=== PATIENT | female | born 1970 | race Caucasian/White ===

== ENCOUNTER 2016-03-14 07:33 | Emergency (ER) | payer MEDICARE, MEDICAID ==
[~2016-03-14] VITALS: Ht 162.6 cm; Wt 90.9 kg
[~2016-03-14 07:33] MED LIST: AMBIEN5 MG PO; AMOXICILLIN 8751 TAB PO; CELEXA; CELEXA40 MG PO; CYMBALTA; CYMBALTA 60MG60 MG PO; DICLEGIS PO; GENTAMICIN OPTHA3 GM OP; KLONOPIN 0.5MG0.5 MG PO; NEXIUM 40MG40 MG PO; NEXIUM24HROTC PO; NO HOME MEDICATIONS; NORCO 325 MG-51 TAB PO; PHENERGAN25 MG; PHENERGAN25 MG RC; PRILOTC PO; SAPHRIS10 MG SL; XANAX 0.5MG0.5 MG PO; XANAX0.25 MG PO; ZESTRIL 20MG TA20 MG PO; ZOCOR 20MG20 MG PO
[2016-03-14 07:35] VITALS: BP 116/95; TEMP 97.9
[2016-03-14 08:27] LABS: ARTERIAL BLD GAS O2 SATURATION 95.5 % (92-100); ARTERIAL BLD GAS TCO2 CT 23.7; ARTERIAL BLOOD GAS BASE EXCESS -1.3 (-2-2); ARTERIAL BLOOD GAS HCO3 22.6 meq/L (22-26); ARTERIAL BLOOD GAS PHT 7.42 C (7.35-7.45); ARTERIAL BLOOD GAS PO2 74.7 mmHg (80-100); ARTERIAL BLOOD GAS PO2T 74.7 (80-100); ARTERIAL BLOOD GAS pH 7.42 (7.35-7.45); OXYHEMOGLOBIN 92.1 %
[2016-03-14 08:28] LABS: ALLEN TEST YES; ALLENS TEST RESULT PASS; ATS? YES
[2016-03-14 08:28] LABS: HEMATOCRIT 42.6 % (37.0-47.0); HEMOGLOBIN 14.1 g/dl (12.5-16.0); MEAN CELL VOLUME 85 fl (80.0-100.0); MEAN CORPUSCULAR HEMOGLOBIN 28 pg (27.0-31.0); MEAN CORPUSCULAR HGB CONC 33 g/dl (33.0-37.0); MEAN PLATELET VOLUME 10.5 fl (7.4-10.4); PLATELET COUNT 410 K/mm3 (130-400); RED BLOOD COUNT 5.04 M/mm3 (4.10-5.30); REDCELL DISTRIBUTION WIDTH-CV 15.3 % (11.5-14.5); WHITE BLOOD COUNT 18.4 K/mm3 (4.8-10.8)
[2016-03-14 08:35] LABS: ADD PATHOLOGY DIFF REVIEW NO; ALBUMIN 4.2 gm/dL (3.5-5.0); BILIRUBIN,TOTAL 0.9 mg/dL (0.0-1.0); CALCIUM 9.2 mg/dL (8.4-10.2); CREATININE, serum 0.62 mg/dL (0.52-1.25); POTASSIUM 3.9 mmol/L (3.4-5.0); TOTAL PROTEIN 7.7 gm/dL (6.4-8.2)
[2016-03-14] MEDS ORDERED: ZOFRAN ODT4 MG PO (09:01)
[2016-03-14 09:55] VITALS: PULSE 95
[2016-03-14 10:04] LABS: PH 7 (5-8); URINE APPEARANCE Hazy; URINE BACTERIA Rare /hpf; URINE BILIRUBIN Negative (NEGATIVE); URINE BLOOD Negative (NEGATIVE); URINE COLOR Yellow; URINE GLUCOSE Negative (NEGATIVE); URINE KETONE Negative (NEGATIVE); URINE UROBILINOGEN Negative (NEGATIVE); URINE WBC 0-2 /hpf
[2016-03-14 10:13] LABS: BAND 8 % (0-10); NEUTROPHILS 87 % (42.0-75.2); PLATELET ESTIMATE NORMAL (NORMAL); TOTAL CELLS COUNTED 100
== END 2016-03-14 09:55 | disposition home or self-care (01) ==
LOC: COL.ER 07:33
PROVIDERS: Emergency Medicine
DX: K52.9 Noninfective gastroenteritis and colitis, unspecified (principal); T59.891A Toxic effect of other specified gases, fumes and vapors, accidental (unintentional), initial encounter; R51 Headache; Y92.009 Unspecified place in unspecified non-institutional (private) residence as the place of occurrence of the external cause
CPT/HCPCS: J1200; J1885; J2550; J7030

== ENCOUNTER 2016-03-18 18:24 | Emergency (ER) | payer MEDICARE, MEDICAID ==
[~2016-03-18] VITALS: Ht 162.6 cm; Wt 90.9 kg
[~2016-03-18 18:24] MED LIST changes: +ZOFRAN ODT4 MG PO
[2016-03-18] MEDS ORDERED: PHENERGAN25 MG RC (18:29)
[2016-03-18 19:18] LABS: BASO # 0.1 (0.0-0.2); BASO % 0.5 % (0.0-2.0); EOS # 0.3 (0.0-0.7); EOS % 1.9 % (0-4.0); GRAN # 8.1 (1.4-6.5); GRAN % 60.9 % (42.2-75.2); HEMOGLOBIN 13.2 g/dl (12.5-16.0); LYMPH # 3.8 (1.2-3.4); LYMPH % 28.3 % (20.0-51.0); MEAN CELL VOLUME 85 fl (80.0-100.0); MEAN CORPUSCULAR HEMOGLOBIN 28 pg (27.0-31.0); MEAN CORPUSCULAR HGB CONC 33 g/dl (33.0-37.0); MONO # 1.1 (0.1-0.6); MONO % 8.1 % (1.7-9.3); PLATELET COUNT 393 K/mm3 (130-400); RED BLOOD COUNT 4.71 M/mm3 (4.10-5.30); REDCELL DISTRIBUTION WIDTH-CV 14.9 % (11.5-14.5); WHITE BLOOD COUNT 13.3 K/mm3 (4.8-10.8)
[2016-03-18 19:25] LABS: PH 6 (5-8); PROTHROMBIN TIME 11.1 SECONDS (9.7-12.8); SQUAMOUS EPITHELIAL 0-2 /hpf; URINE APPEARANCE Clear; URINE BACTERIA Rare /hpf; URINE BILIRUBIN Negative (NEGATIVE); URINE BLOOD Negative (NEGATIVE); URINE COLOR Straw; URINE GLUCOSE Negative (NEGATIVE); URINE KETONE Negative (NEGATIVE); URINE RBC 0-2 /hpf; URINE UROBILINOGEN Negative (NEGATIVE); URINE WBC 0-2 /hpf
[2016-03-18 19:28] LABS: PARTIAL THROMBOPLASTIN TIME 30.7 SECONDS (26.0-37.0)
[2016-03-18 19:29] LABS: ADJUSTED CALCIUM 9.5 mg/dL (8.4-10.2); ALANINE AMINOTRANSFERASE 33 U/L (9-52); ALKALINE PHOSPHATASE 72 U/L (50-136); ANION GAP 12 mmol/L (7-16); BILIRUBIN,TOTAL 0.5 mg/dL (0.0-1.0); BLOOD UREA NITROGEN 11 mg/dL (7-17); CALCIUM 9.5 mg/dL (8.4-10.2); CARBON DIOXIDE 27 mmol/L (22-30); CHLORIDE 102 mmol/L (98-107); CREATININE, serum 0.71 mg/dL (0.52-1.25); GLUCOSE 89 mg/dL (74-106); POTASSIUM 3.4 mmol/L (3.4-5.0); SODIUM 141 mmol/L (137-145); TOTAL PROTEIN 7.3 gm/dL (6.4-8.2)
[2016-03-18 19:36] LABS: AMPHETAMINE URINE NEGATIVE; BARBITURATES URINE NEGATIVE; BENZODIAZEPINES URINE NEGATIVE; BUPRENORPHINE URINE NEGATIVE; METHADONE URINE NEGATIVE; OPIATES URINE NEGATIVE; OXYCODONE URINE NEGATIVE; PHENCYCLIDINE URINE NEGATIVE; PROPOXYPHENE URINE NEGATIVE; THC CANNABINOIDS URINE POSITIVE
[2016-03-18 20:35] VITALS: BP 117/70; PULSE 79; TEMP 98.3
== END 2016-03-18 20:35 | disposition home or self-care (01) ==
LOC: COL.ER 18:24
PROVIDERS: Physician Assistant
DX: G43.109 Migraine with aura, not intractable, without status migrainosus (principal); F17.210 Nicotine dependence, cigarettes, uncomplicated
CPT/HCPCS: J1170; J2405

== ENCOUNTER 2016-10-17 13:20 | Emergency (ER) | payer MEDICARE, MEDICAID ==
[~2016-10-17] VITALS: Ht 162.6 cm; Wt 86.4 kg
[2016-10-17 13:29] VITALS: TEMP 98.8
[2016-10-17 14:04] LABS: BASO # 0.1 (0.0-0.2); BASO % 0.6 % (0.0-2.0); EOS # 0.1 (0.0-0.7); EOS % 0.7 % (0-4.0); GRAN # 10.5 (1.4-6.5); GRAN % 75.1 % (42.2-75.2); HEMATOCRIT 40.8 % (37.0-47.0); HEMOGLOBIN 13.5 g/dl (12.5-16.0); LYMPH # 2.5 (1.2-3.4); LYMPH % 17.6 % (20.0-51.0); MEAN CELL VOLUME 84 fl (80.0-100.0); MEAN CORPUSCULAR HEMOGLOBIN 28 pg (27.0-31.0); MEAN CORPUSCULAR HGB CONC 33 g/dl (33.0-37.0); MONO # 0.8 (0.1-0.6); MONO % 5.6 % (1.7-9.3); PLATELET COUNT 482 K/mm3 (130-400); RED BLOOD COUNT 4.85 M/mm3 (4.10-5.30); REDCELL DISTRIBUTION WIDTH-CV 15.7 % (11.5-14.5); WHITE BLOOD COUNT 13.9 K/mm3 (4.8-10.8)
[2016-10-17] MEDS ORDERED: KLONOPIN 1MG1 MG PO (14:12)
[2016-10-17] MEDS ORDERED: REXULTI2 MG PO (14:13)
[2016-10-17 14:15] LABS: ADJUSTED CALCIUM 9.2 mg/dL (8.4-10.2); ALANINE AMINOTRANSFERASE 20 U/L (9-52); ALBUMIN 4.3 gm/dL (3.5-5.0); ALKALINE PHOSPHATASE 77 U/L (50-136); ANION GAP 11 mmol/L (7-16); BILIRUBIN,TOTAL 0.4 mg/dL (0.0-1.0); BLOOD UREA NITROGEN 11 mg/dL (7-17); CALCIUM 9.4 mg/dL (8.4-10.2); CARBON DIOXIDE 23 mmol/L (22-30); CHLORIDE 103 mmol/L (98-107); CREATININE, serum 0.61 mg/dL (0.52-1.25); GLUCOSE 96 mg/dL (74-106); POTASSIUM 3.9 mmol/L (3.4-5.0); SODIUM 138 mmol/L (137-145); TOTAL PROTEIN 7.6 gm/dL (6.4-8.2)
[2016-10-17 14:27] LABS: TROPONIN-I < 0.012 ng/mL (0.000-0.034)
[2016-10-17 15:45] VITALS: BP 112/71; PULSE 100
== END 2016-10-17 15:45 | disposition home or self-care (01) ==
LOC: COL.ER 13:20
PROVIDERS: Family Medicine
DX: F41.0 Panic disorder [episodic paroxysmal anxiety] (principal); F17.210 Nicotine dependence, cigarettes, uncomplicated
CPT/HCPCS: J1200; J1885; J2060; J7030

== ENCOUNTER 2017-01-30 07:15 | Emergency (ER) | payer MEDICARE, MEDICAID ==
[~2017-01-30] VITALS: Ht 162.6 cm; Wt 90.9 kg
[~2017-01-30 07:15] MED LIST changes: +KLONOPIN 1MG1 MG PO; +REXULTI2 MG PO
[2017-01-30 07:17] VITALS: BP 155/68; TEMP 98.4
[2017-01-30 08:04] LABS: BASO # 0.1 (0.0-0.2); BASO % 0.5 % (0.0-2.0); EOS # 0.1 (0.0-0.7); EOS % 0.7 % (0-4.0); GRAN # 13.7 (1.4-6.5); GRAN % 76.8 % (42.2-75.2); HEMATOCRIT 42.3 % (37.0-47.0); HEMOGLOBIN 13.8 g/dl (12.5-16.0); LYMPH # 2.7 (1.2-3.4); MEAN CELL VOLUME 84 fl (80.0-100.0); MEAN CORPUSCULAR HEMOGLOBIN 28 pg (27.0-31.0); MEAN CORPUSCULAR HGB CONC 33 g/dl (33.0-37.0); MEAN PLATELET VOLUME 9.8 fl (7.4-10.4); MONO # 1.2 (0.1-0.6); MONO % 6.6 % (1.7-9.3); PLATELET COUNT 491 K/mm3 (130-400); RED BLOOD COUNT 5.02 M/mm3 (4.10-5.30); WHITE BLOOD COUNT 17.9 K/mm3 (4.8-10.8)
[2017-01-30 08:14] LABS: BLOOD UREA NITROGEN 18 mg/dL (7-17); CREATININE, serum 0.63 mg/dL (0.52-1.25); GLUCOSE 107 mg/dL (74-106)
[2017-01-30 08:15] LABS: ADJUSTED CALCIUM 9.4 mg/dL (8.4-10.2); ALANINE AMINOTRANSFERASE 23 U/L (9-52); ALBUMIN 4.3 gm/dL (3.5-5.0); ALKALINE PHOSPHATASE 102 U/L (50-136); ANION GAP 8 mmol/L (7-16); BILIRUBIN,TOTAL 0.8 mg/dL (0.0-1.0); CALCIUM 9.6 mg/dL (8.4-10.2); CARBON DIOXIDE 25 mmol/L (22-30); CHLORIDE 104 mmol/L (98-107); LIPASE 91 U/L (23-300); SODIUM 138 mmol/L (137-145); TOTAL PROTEIN 7.8 gm/dL (6.4-8.2)
[2017-01-30 08:17] LABS: C-REACTIVE PROTEIN < 0.5 mg/dL (0.0-0.9)
[2017-01-30] MEDS ORDERED: ZOFRAN ODT4 MG PO (09:15)
[2017-01-30 09:41] VITALS: PULSE 65
== END 2017-01-30 09:43 | disposition home or self-care (01) ==
LOC: COL.ER 07:15
PROVIDERS: Family Medicine
DX: E86.0 Dehydration (principal); F41.9 Anxiety disorder, unspecified; R11.10 Vomiting, unspecified; R51 Headache; F32.9 Major depressive disorder, single episode, unspecified; Z90.49 Acquired absence of other specified parts of digestive tract
CPT/HCPCS: J2060; J2405; J7030; J7050; Q9967